=== PATIENT | male | born 1935 | race Caucasian/White ===

== ENCOUNTER 2017-11-19 13:02 | Outpatient (CLI) | payer MEDICARE ==
--- NOTE | 2017-11-19 15:00 | RAD ---
CHEST PA AND LATERAL: HISTORY: Dyspnea. COMPARISON: 01/25/2016 FINDINGS: Atherosclerosis of the aorta. Normal cardiac silhouette. Pulmonary vessels and hilum are normal. C ostophrenic angles are clear. Hyperinflation with chronic changes. No consolidation or mass. No pn eumothorax or osseous abnormalities. IMPRESSION: 1. Atherosclerosis. 2. No acute process. POS: [facility]
== END 2017-11-19 13:03 | disposition home or self-care (01) ==
LOC: RAD 13:02
PROVIDERS: ATTEND Internal Medicine Pulmonary Disease
DX: R06.00 Dyspnea, unspecified (principal); I70.0 Atherosclerosis of aorta
CPT/HCPCS: 71046

== ENCOUNTER 2020-10-17 13:42 | Outpatient (CLI) | payer MEDICARE ==
--- NOTE | 2020-10-17 14:29 | RAD ---
XR Chest Pa Lat STANDARD HISTORY: Dyspnea COMPARISON: 11/19/2017 FINDINGS: The heart size is normal. The aorta is tortuous. The lungs are well expanded without focal areas of consolidation, pneumothorax or pleural effusions. IMPRESSION: No radiographic evidence of acute cardiopulmonary process.
== END 2020-10-17 13:43 | disposition home or self-care (01) ==
LOC: BICRAD 13:42
PROVIDERS: ATTEND Internal Medicine Pulmonary Disease
DX: R06.00 Dyspnea, unspecified (principal)
CPT/HCPCS: 71046